=== PATIENT | male | born 1965 | race African-American/Black ===

== ENCOUNTER 2017-06-03 20:12 | Emergency (ER) | payer OTHER ==
[~2017-06-03] VITALS: Ht 170.2 cm; Wt 103.9 kg
[~2017-06-03 20:12] MED LIST: AMOXICILLIN500 MG PO; DILAUDID2 MG PO; FENTANYL1 EAC5; KEFLEX500 MG PO; METHADONE10 MG PO; METOPROLOL SUCC25 MG PO; OXYCODONE HCL15 MG PO; PERCOCET 5/31 TABLET PO
[2017-06-03] MEDS ORDERED: NAPROXEN500 MG PO (22:11)
[2017-06-03] MEDS ORDERED: VALIUM2 MG PO (22:11)
[2017-06-03] MEDS ORDERED: LIDODERM 5% P1 PATCH TD (22:11)
[2017-06-03 22:24] VITALS: BP 184/99
== END 2017-06-03 22:37 | disposition home or self-care (01) ==
LOC: EME 20:12
DX: S39.012A Strain of muscle, fascia and tendon of lower back, initial encounter (principal); X50.9XXA Other and unspecified overexertion or strenuous movements or postures, initial encounter
CPT/HCPCS: 99281; 99284; J1885